=== PATIENT | female | born 1975 | race Caucasian/White ===

== ENCOUNTER 2017-12-23 20:41 | Emergency (ER) | payer OTHER ==
[~2017-12-23] VITALS: Ht 180.3 cm; Wt 99.3 kg
[2017-12-23] MEDS ORDERED: LISINOPRIL20 MG (21:00)
[2017-12-23] MEDS ORDERED: CELEXA40 MG (21:01)
[2017-12-23 21:16] LABS: ABSOLUTE BASOPHILS 0.1 thou/uL (0.0-0.2); ABSOLUTE EOSINOPHILS 0.4 thou/uL (0.0-0.7); ABSOLUTE LYMPHOCYTES 1.7 thou/uL (0.8-5.3); ABSOLUTE MONOCYTES 0.4 thou/uL (0.0-1.2); ABSOLUTE NEUTROPHILS 2.6 thou/uL (1.6-8.1); BASOPHILS 1.3 %; EOSINOPHILS 7.4 %; HEMATOCRIT 42.5 % (37.0-47.0); HEMOGLOBIN 14.4 gm/dL (12.0-15.0); LYMPHOCYTES 33.4 %; MCH 28.2 pg (26.0-34.0); MCHC 33.9 g/dL (28.0-37.0); MCV 83.1 fL (80.0-100.0); MPV 7.2 fl. (7.2-11.1); NUCLEATED RBCS 0 /100WBC; PLATELET COUNT* 198 thou/uL (150-400); POLYS 49.9 %; RBC 5.11 mil/uL (4.20-5.00); RDW-CV 13.7 % (10.5-14.5); WBC 5.1 thou/uL (4.0-11.0)
[2017-12-23 21:25] LABS: ANION GAP 8 mmol/L (7-16); BUN 11 mg/dL (7-18); CALCIUM 8.6 mg/dL (8.5-10.1); CHLORIDE 103 mmol/L (98-107); CO2 28 mmol/L (21-32); GLUCOSE 117 mg/dL (70-99); POTASSIUM 3.5 mmol/L (3.5-5.1); SODIUM 139 mmol/L (136-145)
[2017-12-23 21:26] LABS: APTT 27.6 Seconds (25.0-31.3); PROTIME 9.4 Seconds (9.20-11.50)
[2017-12-23 21:32] LABS: ALBUMIN 3.5 g/dL (3.4-5.0); ALKALINE PHOSPHATASE 131 U/L (46-116); LIPASE 262 U/L (73-393); SGOT 48 U/L (15-37); SGPT 77 U/L (30-65); TOTAL BILIRUBIN 0.4 mg/dL (<0.1-1.0); TOTAL PROTEIN 7.6 g/dL (6.4-8.2); TROPONIN-I LEVEL <0.06 ng/mL (<0.06)
[2017-12-23 21:57] LABS: URINE BILIRUBIN NEGATIVE (Negative); URINE BLOOD NEGATIVE (Negative); URINE CLARITY CLEAR; URINE COLOR YELLOW; URINE GLUCOSE-RANDOM NEGATIVE (Negative); URINE KETONES NEGATIVE (Negative); URINE LEUKOCYTES-REFLEX NEGATIVE (Negative); URINE NITRITE-REFLEX NEGATIVE (Negative); URINE PROTEIN NEGATIVE (Negative); URINE SPECIFIC GRAVITY <= 1.005 (1.005-1.030); URINE UROBILINOGEN 0.2 E.U./dl (0.2-1.0)
[2017-12-23 22:03] LABS: AMP/METHAMP POSITIVE (Negative); BARBITURATES Negative (Negative); BENZODIAZEPINES Negative (Negative); COCAINE Negative (Negative); METHADONE Negative (Negative); OPIATES Negative (Negative); PCP Negative (Negative); THC Negative (Negative)
[2017-12-23 23:15] VITALS: BP 117/76
--- NOTE | 2017-12-24 10:11 | EKG ---
[place] [address] ELECTROCARDIOGRAM REPORT Name: CAT CARDENAS [id number] Admission: 12/23/17 Attend Phys: Discharge: 12/23/17 Date of : 75 Report #: [id number] THIS REPORT FOR: //name// [facility] ED Test Date: 2017-12-23 Test Time: 20:58:59 Pat Name: CAT CARDENAS Department: Room: Gender: F [employer]: : 1975 Requested By: Geeta Sow Order Number: [id number] Abdi MD: Jonny Lanza Measurements Intervals [place] Rate: 101 P: 30 MN: 133 QRS: 56 QRSD: 77 T: 45 QT: 348 QTc: 452 Interpretive Statements Sinus tachycardia Minimal ST depression, lateral leads No previous ECG available for comparison Electronically Signed On 12-24-2017 10:11:43 CDT by Jonny Lanza [email or web address] <ELECTRONICALLY SIGNED> By: Jonny Lanza MD, [facility] 12/24/17 1011 57 57 Jonny aLnza MD, FACC /EPI
== END 2017-12-23 23:16 | disposition home or self-care (01) ==
LOC: M.ERS 20:41
PROVIDERS: Physician Assistant
DX: I95.1 Orthostatic hypotension (principal); R91.1 Solitary pulmonary nodule; F15.10 Other stimulant abuse, uncomplicated; I10 Essential (primary) hypertension; F32.9 Major depressive disorder, single episode, unspecified; Z88.2 Allergy status to sulfonamides; Z88.0 Allergy status to penicillin